=== PATIENT | female | born 1935 | race Native Hawaiian/Other Pacific Islander ===

== ENCOUNTER 2022-07-28 17:20 | Inpatient (IN) | payer OTHER | END 2022-08-02 10:56 | disposition still patient (30) | LOC: PAVB 17:20 | PROVIDERS: ADMIT Family Medicine; ATTEND Family Medicine ==

== ENCOUNTER 2022-08-02 11:26 | Inpatient (IN) | payer OTHER | END 2022-09-01 10:40 | disposition still patient (30) | LOC: PAVB 11:26 | PROVIDERS: ADMIT Family Medicine; ATTEND Family Medicine ==

== ENCOUNTER 2022-09-01 11:18 | Inpatient (IN) | payer OTHER | END 2022-10-02 10:42 | disposition still patient (30) | LOC: PAVB 11:18 | PROVIDERS: ADMIT Family Medicine; ATTEND Family Medicine ==

== ENCOUNTER 2022-10-02 13:30 | Inpatient (IN) | payer OTHER | END 2022-11-02 08:54 | disposition still patient (30) | LOC: PAVB 13:30 | PROVIDERS: ADMIT Family Medicine; ATTEND Family Medicine ==

== ENCOUNTER 2022-11-02 11:29 | Inpatient (IN) | payer OTHER | END 2022-11-30 14:21 | disposition still patient (30) | LOC: PAVB 11:29 | PROVIDERS: ADMIT Family Medicine; ATTEND Family Medicine ==

== ENCOUNTER 2022-12-15 05:57 | Outpatient (CLI) | payer OTHER ==
[2022-12-15 08:04] LABS: PLATELET COUNT 263 K/uL (152-353)
[2022-12-15 08:30] LABS: POTASSIUM 3.4 mmol/L (3.6-5.2)
== END 2022-12-15 19:30 | disposition home or self-care (01) ==
LOC: LAB 05:57
PROVIDERS: ATTEND Family Medicine
DX: G31.1 Senile degeneration of brain, not elsewhere classified (principal); E11.9 Type 2 diabetes mellitus without complications
CPT/HCPCS: 80053; 83036; 85027

== ENCOUNTER 2022-12-17 21:43 | Inpatient (IN) | payer OTHER ==
[2022-12-17] VITALS (7 sets, daily range): BP systolic 94–192; BP diastolic 39–147; TEMP 97.1
[~2022-12-17] VITALS: Ht 162.6 cm; Wt 55.5 kg
[2022-12-17 22:23] LABS: PLATELET COUNT 245 K/uL (152-353)
[2022-12-17 22:36] LABS: PARTIAL THROMBOPLASTIN TIME 25.8 SECONDS (24.5-33.6)
[2022-12-18] VITALS (9 sets, daily range): BP systolic 112–156; BP diastolic 59–81; TEMP 97.5–99; Ht 162.6 cm; Wt 55.5 kg
[2022-12-18] MEDS ORDERED: LINZESS290 MCG PO (08:31)
[2022-12-18] MEDS ORDERED: NITR100C PO (08:32)
[2022-12-18] MEDS ORDERED: TEMA30CA18 PO (08:33)
[2022-12-18] MEDS ORDERED: OLANZAPINE7.5 MG PO (08:33)
[2022-12-18] MEDS ORDERED: COLACE 2-IN-1 81 TAB PO (08:37)
[2022-12-18] MEDS ORDERED: HYDROCODONE BIT1 TA1 PO (08:40)
[2022-12-18] MEDS ORDERED: LACTULOSE10 GM/15 M PO (08:43)
[2022-12-18] MEDS ORDERED: LORAZEPAM INT2 MG/ML PO (08:47)
[2022-12-18] MEDS ORDERED: ONDANSETRON HYDR4 MG PO (08:50)
[2022-12-18] MEDS ORDERED: PROMETHAZINE25 M1 RE (08:51)
[2022-12-18] MEDS ORDERED: MORPHINE S100 MG/5 M PO (08:56)
[2022-12-18] MEDS ORDERED: MILK OF MA400 MG/5 M PO (08:59)
[2022-12-18] MEDS ORDERED: [UNRECOGNIZED DRUG - OTHER] OPTH (09:01)
[2022-12-18] MEDS ORDERED: FENT100D TD (09:10)
[2022-12-19 03:38] VITALS: BP 113/53; TEMP 97.5
[2022-12-19 07:31] VITALS: BP 166/53; TEMP 97.6
[2022-12-19 12:00] VITALS: BP 159/63; TEMP 98.5
[2022-12-19 16:03] VITALS: BP 150/61; TEMP 99.2
[2022-12-19 20:00] VITALS: BP 141/46; TEMP 99.1
[2022-12-20 00:43] VITALS: BP 154/56; TEMP 97.8
[2022-12-20 04:05] VITALS: BP 150/60; TEMP 97.6
[2022-12-20 05:43] LABS: PLATELET COUNT 189 K/uL (152-353)
[2022-12-20 06:05] LABS: POTASSIUM 4.1 mmol/L (3.6-5.2)
[2022-12-20 08:00] VITALS: BP 156/62; TEMP 97.8
[2022-12-20 12:00] VITALS: BP 176/77; TEMP 97.6
[2022-12-20 16:00] VITALS: BP 118/49; TEMP 99.2
[2022-12-20 20:00] VITALS: BP 156/62; TEMP 98.7
[2022-12-21] VITALS (7 sets, daily range): BP systolic 124–155; BP diastolic 33–71; TEMP 97.1–99.8
[2022-12-21 05:38] LABS: PLATELET COUNT 230 K/uL (152-353)
[2022-12-21 05:57] LABS: POTASSIUM 4.1 mmol/L (3.6-5.2)
[2022-12-22] VITALS (7 sets, daily range): BP systolic 132–168; BP diastolic 48–72; TEMP 98–99.4
[2022-12-22] MEDS ORDERED: FENT50DI TD (13:33)
[2022-12-22] MEDS ORDERED: LEVAQUIN250 MG PO (13:39)
[2022-12-23 03:37] VITALS: BP 117/36; BP 174/80; TEMP 98.3; TEMP 99
[2022-12-23 08:13] VITALS: BP 161/58; TEMP 98.5
[2022-12-23 09:14] LABS: PLATELET COUNT 263 K/uL (152-353)
[2022-12-23 09:22] LABS: POTASSIUM 4.1 mmol/L (3.6-5.2)
== END 2022-12-23 12:38 | disposition home health service (06) | DRG 689 ==
LOC: ED 21:43 → MED/SURG 12-18 00:07 → ED 12-18 00:07 → MED/SURG 12-18 00:25 → ED 12-18 00:48 → MED/SURG 12-23 12:38
PROVIDERS: Family Medicine; ADMIT Internal Medicine; ATTEND Internal Medicine
DX: N39.0 Urinary tract infection, site not specified (principal); J18.8 Other pneumonia, unspecified organism; I95.89 Other hypotension; R41.82 Altered mental status, unspecified; G89.29 Other chronic pain; H40.89 Other specified glaucoma; F41.8 Other specified anxiety disorders; M15.8 Other polyosteoarthritis; F03.90 Unspecified dementia, unspecified severity, without behavioral disturbance, psychotic disturbance, mood disturbance, and anxiety; E11.65 Type 2 diabetes mellitus with hyperglycemia
CPT/HCPCS: 36415; 51702; 80048; 80053; 81000; 82550; 82948; 84484; 85027; 85610; 85730; 87088; 93005; 96360; 96361; 96365; 96367; 96372; 96375; 99284; J0696; J1650; J1940; J1956; J2310